=== PATIENT | male | born 1950 | race Caucasian/White ===

== ENCOUNTER 2018-05-08 12:16 | Day surgery (SDC) | payer MEDICARE ==
[2018-05-06 08:54] VITALS: BP 147/94
[~2018-05-08] VITALS: Ht 182.9 cm; Wt 97.5 kg
[~2018-05-08 12:16] MED LIST: ASPI325T17 PO; BUPIVACAINE/PF-EPI 0.5% 1:200K ONE; ESOM20CA PO
[2018-05-08] MEDS ORDERED: LACTATED RINGERS 1,000 ML IV SCH ×2 (12:39→18:00)
[2018-05-08 12:50] VITALS: BP 147/94
[2018-05-08] MEDS ORDERED: OXYcodone IR 5MG TABLET PO ONE (13:00)
[2018-05-08] MEDS ORDERED: GABAPENTIN 300 MG CAPSULE PO ONE (13:00)
[2018-05-08] MEDS ORDERED: ACETAMINOPHEN 500 MG TABLET PO ONE (13:00)
[2018-05-08] MEDS ORDERED: LIDOCAINE-MPF 1%, 2ML INFIL ONE (13:00)
[2018-05-08] MEDS ORDERED: PROCHLORPERAZINE 5 MG/ML, 2ML IV PRN (15:30)
[2018-05-08] MEDS ORDERED: hydrALAzine 20 MG/ML, 1ML IV PRN (15:30)
[2018-05-08] MEDS ORDERED: OXYcodone 5 MG/5 ML ORAL.SOL UDC PO PRN (15:30)
[2018-05-08] MEDS ORDERED: FENTANYL PF 100 MCG/2ML IV PRN (15:30)
[2018-05-08] MEDS ORDERED: LABETALOL 5MG/ML, 20ML IV PRN (15:30)
[2018-05-08] MEDS ORDERED: FENTANYL PF 250 MCG/5ML ONE (15:30)
[2018-05-08] MEDS ORDERED: DIPHENHYDRAMINE 50 MG/ML, 1ML IVPush PRN (15:30)
[2018-05-08] MEDS ORDERED: MEPERIDINE/PF 25MG/0.5ML IVPush PRN (15:30)
[2018-05-08] MEDS ORDERED: HYDROmorphone 2 MG/ML, 1ML IV PRN (15:30)
[2018-05-08] MEDS ORDERED: PROMETHAZINE 25 MG/ML, 1ML IV PRN (15:30)
[2018-05-08] MEDS ORDERED: DEXAMETHASONE 4 MG/ML, 1ML ONE (16:51)
[2018-05-08] MEDS ORDERED: PROPOFOL 10 MG/ML, 20ML ONE (16:51)
[2018-05-08] MEDS ORDERED: NEOSTIGMINE 1 MG/ML, 10ML ONE (16:51)
[2018-05-08] MEDS ORDERED: CEFAZOLIN 1,000 MG ONE (16:51)
[2018-05-08] MEDS ORDERED: SUCCINYLCHOLINE 20 MG/ML, 10ML ONE (16:51)
[2018-05-08] MEDS ORDERED: ONDANSETRON 2MG/ML, 2ML ONE (16:51)
[2018-05-08] MEDS ORDERED: ROCURONIUM 10MG/ML,5ML ONE (16:51)
[2018-05-08] MEDS ORDERED: GLYCOPYRROLATE 0.2MG/1ML, 5ML ONE (16:51)
[2018-05-08] MEDS ORDERED: OXYcodone 5 MG/5 ML ORAL.SOL UDC ONE (17:15)
[2018-05-08] MEDS ORDERED: FENTANYL PF 100 MCG/2ML ONE (17:17)
[2018-05-08] MEDS ORDERED: MORPHINE SULFATE 4 MG/ML, 1ML IVPush PRN (18:00)
[2018-05-08] MEDS ORDERED: ONDANSETRON 2MG/ML, 2ML IVPush PRN (18:00)
[2018-05-08] MEDS ORDERED: OXYcodone/APAP 5/325MG TABLET PO PRN (18:00)
[2018-05-08] MEDS ORDERED: ONDANSETRON ODT 4 MG PO PRN (18:00)
== END 2018-05-08 19:24 | disposition home or self-care (01) ==
LOC: OUT 12:16 → 4NOR 17:39 → OUT 19:24
PROVIDERS: ATTEND Surgery
DX: K40.90 Unilateral inguinal hernia, without obstruction or gangrene, not specified as recurrent (principal); K21.9 Gastro-esophageal reflux disease without esophagitis; F19.90 Other psychoactive substance use, unspecified, uncomplicated; Z88.8 Allergy status to other drugs, medicaments and biological substances; Z98.890 Other specified postprocedural states; Z72.89 Other problems related to lifestyle
CPT/HCPCS: 49650; 93005; C1781; J0330; J0690; J1100; J2405; J2704; J2710; J3010; J3490; J7120; S2900; G0378